=== PATIENT | female | born 1960 | race Caucasian/White ===

== ENCOUNTER → 2019-03-04 00:43 | Emergency (ER) | payer BC ==
[~2019-03-04 00:43] MED LIST: Meclizine TAB* 12.5 MG ONE
[2019-03-04 04:21] LABS: ABS Basophils 0.1 10^3/ul (0-0.2); ABS Eosinophils 0.1 10^3/ul (0-0.6); ABS Monocytes 0.7 10^3/ul (0-0.8); ABS Neutrophils 5.5 10^3/ul (1.5-7.7); Eosinophil % 0.9 %; Hematocrit 44 % (35-47); Hemoglobin 14.8 g/dL (12.0-16.0); Lymphocyte % 23.8 %; Mean Corpuscular HGB Conc 34 g/dL (31-36); Mean Corpuscular Hemoglobin 30 pg (27-31); Mean Corpuscular Volume 90 fL (80-97); Mean Platelet Volume 8.3 fL (7.4-10.4); Platelet Count 299 10^3/uL (150-450); Red Blood Count 4.91 10^6 /uL (3.70-4.87); Red Cell Distribution Width 14 % (10-15); White Blood Count 8.3 10^3/uL (3.5-10.8)
[2019-03-04 04:22] LABS: Albumin 4.1 g/dL (3.2-5.2); Albumin/Globulin Ratio 1.3 (1-3); Calcium 9.5 mg/dL (8.6-10.3); EGFR African American 78.6 (>60); EGFR Non-African American 64.9 (>60); Globulin 3.1 g/dL (2-4); Total Bilirubin 0.2 mg/dL (0.2-1.0); Total Protein 7.2 g/dL (6.4-8.9)
--- NOTE | 2019-03-04 05:35 | ED ---
Dizziness - HPI Summary HPI Summary: 58 year old F presents to [facility] accompanied by female friend with a chief complaint of dizziness upon waking up at 1130 this morning, 03/03/19. Patient reports she went to bed ok but woke up with her balance being off and is currently feeling pressure in her head, dizzy, and anxious. Patient reports an episode of dizziness 5 days ago that was lower in intensity than today which continued onto the next day. Patient reports that the rest of the week up until today she felt fine. Patient denies vomiting, nausea, or blurred vision, per triage. Per triage, patient also reports pulsating in her left ear once a year which she goes to therapy for. Symptoms aggravated by nothing. Symptoms alleviated by nothing. - History Of Current Complaint Chief Complaint: EDDizziness Stated Complaint: DIZZY PER PT Time Seen by Provider: 03/04/19 04:40 Hx Obtained From: Patient Onset/Duration: Still Present Character: Dizzy Aggravating Factor(s): Nothing Alleviating Factor(s): Nothing Associated Signs And Symptoms: Positive: Other: - (-): blurred vision. Negative : Nausea, Vomiting - Allergies/Home Medications Allergies/Adverse Reactions: Allergies Allergy/AdvReac Type Severity Reaction Status Date / Time No Known Allergies Allergy Verified 03/04/19 00:52 PMH/Surg Hx/FS Hx/Imm Hx Sensory History: Denies: Hx Legally Blind Opthamlomology History: Denies: Hx Legally Blind EENT History: Denies: Hx Deafness Infectious Disease History: No Infectious Disease History: Denies: Traveled Outside the [place] in Last 30 Days - Family History Known Family History: Negative: Blood Disorder - Social History Alcohol Use: None Substance Use Type: Reports: None Review of Systems Negative: Blurred Vision Negative: Vomiting, Nausea Neurological: Other - dizziness, feeling pressure in head Positive: Anxious All Other Systems Reviewed And Are Negative: Yes Physical Exam - Summary Physical Exam Summary: VITAL SIGNS: Reviewed. GENERAL: Patient is a well-developed and nourished FEMALE who is lying comfortable in the stretcher. Patient is not in any acute respiratory distress. HEAD AND FACE: No signs of trauma. No ecchymosis, hematomas or skull depressions. No sinus tenderness. EYES: PERRLA, EOMI x 2, No injected conjunctiva, no nystagmus. EARS: Hearing grossly intact. Ear canals and tympanic membranes are within normal limits. MOUTH: Oropharynx within normal limits. NECK: Supple, trachea is midline, no adenopathy, no JVD, no carotid bruit, no c- spine tenderness, neck with full ROM CHEST: Symmetric, no tenderness at palpation LUNGS: Clear to auscultation bilaterally. No wheezing or crackles. CVS: Regular rate and rhythm, S1 and S2 present, no murmurs or gallops appreciated. ABDOMEN: Soft, non-tender. No signs of distention. No rebound no guarding, and no masses palpated. Bowel sounds are normal. EXTREMITIES: FROM in all major joints, no edema, no cyanosis or clubbing. NEURO: Alert and oriented x 3. No acute neurological deficits. Speech is normal and follows commands. SKIN: Dry and warm Triage Information Reviewed: Yes Vital Signs On Initial Exam: Initial Vitals Temp Pulse Resp BP Pulse Ox 98.1 F 102 18 138/101 99 03/04/19 00:47 03/04/19 00:47 03/04/19 00:47 03/04/19 00:47 03/04/19 00:47 Vital Signs Reviewed: Yes Diagnostics - Vital Signs Vital Signs Temp Pulse Resp BP Pulse Ox 03/04/19 05:19 98.9 F 63 16 119/71 99 03/04/19 00:47 98.1 F 102 18 138/101 99 - Laboratory Lab Results: Lab Results 03/04/19 03/04/19 Range/Units 03:03 03:03 WBC 8.3 (3.5-10.8) 10^3/uL RBC 4.91 H (3.70-4.87) 10^6 /uL Hgb 14.8 (12.0-16.0) g/dL Hct 44 (35-47) % MCV 90 (80-97) fL MCH 30 (27-31) pg MCHC 34 (31-36) g/dL RDW 14 (10-15) % Plt Count 299 (150-450) 10^3/uL MPV 8.3 (7.4-10.4) fL Neut % (Auto) 65.8 % Lymph % (Auto) 23.8 % Stewart % (Auto) 8.9 % Eos % (Auto) 0.9 % Baso % (Auto) 0.6 % Absolute Neuts (auto) 5.5 (1.5-7.7) 10^3/ul Absolute Lymphs (auto) 2.0 (1.0-4.8) 10^3/ul Absolute Monos (auto) 0.7 (0-0.8) 10^3/ul Absolute Eos (auto) 0.1 (0-0.6) 10^3/ul Absolute Basos (auto) 0.1 (0-0.2) 10^3/ul Absolute Nucleated RBC 0.0 10^3/ul Nucleated RBC % 0.0 Sodium 140 (135-145) mmol/L Potassium 4.0 (3.5-5.0) mmol/L Chloride 107 (101-111) mmol/L Carbon Dioxide 26 (22-32) mmol/L Anion Gap 7 (2-11) mmol/L BUN 16 (6-24) mg/dL Creatinine 0.89 (0.51-0.95) mg/dL Est GFR ( Amer) 78.6 (>60) Est GFR (Non-Af Amer) 64.9 (>60) BUN/Creatinine Ratio 18.0 (8-20) Glucose 107 H (70-100) mg/dL Calcium 9.5 (8.6-10.3) mg/dL Total Bilirubin 0.20 (0.2-1.0) mg/dL AST 17 (13-39) U/L ALT 13 (7-52) U/L Alkaline Phosphatase 96 (34-104) U/L Total Protein 7.2 (6.4-8.9) g/dL Albumin 4.1 (3.2-5.2) g/dL Globulin 3.1 (2-4) g/dL Albumin/Globulin Ratio 1.3 (1-3) Result Diagrams: 03/04/19 03:03 03/04/19 03:03 Lab Statement: Any lab studies that have been ordered have been reviewed, and results considered in the medical decision making process. - CT Brain CT CT Interpretation Completed By: Radiologist Summary of CT Findings: Per radiologist,. No acute intracranial findings. ED physician has reviewed this image report. Dizzy Course/Dx - Course Course Of Treatment: 58 year old F presenting to [facility] accompanied by female friend with a chief complaint of dizziness upon waking up at 1130 this morning, 03/03/19. Patient reports she went to bed ok but woke up with her balance being off and is currently feeling pressure in her head, dizzy, and anxious. Patient reports an episode of dizziness 5 days ago that was lower in intensity than today which continued onto the next day. Patient denies vomiting, nausea, or blurred vision, per triage. Physical exam shows no abnormalities. Blood work shows no abnormalities except for RBC 4.91 H and Glucose 107 H. See downtime sheets for medications. Brain CT reveals No acute intracranial findings. Physician discussed discharge with patient who agrees with plan. Patient will be discharged. Patient intends to follow up with primary care provider within 3 days. - Diagnoses Provider Diagnoses: Vertigo Discharge - Sign-Out/Discharge Documenting (check all that apply): Patient Departure - discharge Patient Received Moderate/Deep Sedation with Procedure: No - Discharge Plan Condition: Stable Disposition: HOME Prescriptions: Meclizine TAB* [Antivert 12.5 TAB*] 25 mg PO TID PRN #20 tab PRN Reason: Vertigo Patient Education Materials: Vertigo (ED) Referrals: Huyen Waggoner DC [Primary Care Provider] - 3 Days Additional Instructions: PLEASE RETURN TO ED FOR ANY NEW OR WORSENING SYMPTOMS. FOLLOW UP WITH YOUR PRIMARY CARE PHYSICIAN WITHIN THREE DAYS. - Attestation Statements Document Initiated by Scribe: Yes Documenting Scribe: Kinsey Brown Provider For Whom Master is Documenting (Include Credential): Edwige Maradiaga MD Scribe Attestation: Yony Giang Alison Kim, scribed for Edwige Maradiaga MD on 03/04/19 at 0545. Status of Scribe Document: Ready
== END | disposition home or self-care (01) ==
LOC: ED 00:43
DX: R42 Dizziness and giddiness (principal)
CPT/HCPCS: 36415; 70450; 80053; 85025; 99282; A9270-GY

== ENCOUNTER 2019-04-05 11:45 | Emergency (ER) | payer BC ==
--- OUTSIDE RECORDS SUMMARY | 2019-04-05 11:50 | XMS REPORT | Continuity of Care Document ---
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 [address] [place] [address] Problems Active Problems Provider Date Esophageal dysphagia Marcus Howe MD Onset: 10/25/2011 Gastroesophageal reflux disease Marcus Howe MD Onset: 10/25/2011 Impacted cerumen Marcus Howe MD Onset: 06/29/2015 Tinnitus of left ear Marcus Howe MD Onset: 05/18/2018 Family History Date Family Member(s) Observation Comments General Cancer General Diabetes General Thyroid Disease Onset: (age 62 Years) Mother Cancer melanoma Onset: (age 42 Years) First Sister Thyroid Disease Social History Type Date Description Comments Sex Unknown Occupation [employer] Tobacco Use Start: Unknown Never Smoked Cigarettes Tobacco Use Start: Unknown Never Smoked Cigars Tobacco Use Start: Unknown Never Smoked A Pipe Smokeless Tobacco Never Used Smokeless Tobacco ETOH Use Does not drink alcohol Allergies, Adverse Reactions, Alerts Description No Known Drug Allergies Medications Active Medications SIG Qnty Indications Ordering Provider Date Turmeric Curcumin as directed Florencia Garcia M.D. 5-1000mg Capsules Biotin Florencia Garcia M.D. 1mg Capsules History Medications No Active Medications Marcus Howe MD 06/29/2015 - 05/18/2018 Pepcid 40 mg p.o. 90tabs 787.24 Marcus Howe MD 10/25/2011 - 40mg Tablets q.h.s. 06/28/2015 Omeprazole one po one 90caps 787.24 Marcus Howe MD 10/25/2011 - 40mg per day 06/28/2015 Capsules Vitamin B 12 Unknown - 06/28/2015 Cool Supplement Unknown - 06/28/2015 Immunizations CPT Code Status Date Vaccine Lot # [id number] Refused 06/29/2015 Prevnar 13 For Intramuscular Use 42355 Refused 06/29/2015 Influenza Virus Vaccine, 3 Years Of Age And Above, Intramuscular Vital Signs Date Vital Result Comment 03/18/2019 8:45am Weight 193.00 lb Weight 87.545 kg Height 65 inches 5'5" Height in cm's 165.1 cm BMI (Body Mass Index) 32.1 kg/m2 05/18/2018 10:32am Weight 193.00 lb Weight 87.545 kg Height 65 inches 5'5" Height in cm's 165.1 cm BMI (Body Mass Index) 32.1 kg/m2 06/29/2015 2:14pm BP Systolic 110 mmHg BP Diastolic 80 mmHg Heart Rate 70 /min Respiratory Rate 17 /min Weight 172.00 lb Weight 78.019 kg Height 66 inches 5'6" Height in cm's 167.6 cm BMI (Body Mass Index) 27.8 kg/m2 10/25/2011 9:51am BP Systolic 133 mmHg BP Diastolic 93 mmHg Heart Rate 98 /min Respiratory Rate 16 /min Weight 203.00 lb Weight 92.081 kg Height 65 inches 5'5" Height in cm's 165.1 cm BMI (Body Mass Index) 33.8 kg/m2 Procedures Date Code Description Status 06/29/2015 20975 Removal Wax Impaction Completed 10/25/2011 65384 Fiberoptic Laryngoscopy Completed Encounters Type Date Location Provider Dx Diagnosis Office Visit 03/18/2019 [place],Marcus Lucas H93.12 Tinnitus, left ear 8:30a 08/18/07 Office Visit 05/18/2018 [facility],Marcus Lucas H93.12 Tinnitus, left ear 10:45a 08/18/07 Office Visit 10/25/2011 [place],Marcus Lucas 787.24 Dysphagia, 9:30a 08/18/07 Pharyngoesophageal Phase 530.81 Reflux, Gastroesophageal Plan of Treatment Future Appointment(s):04/01/2019 3:15 pm - Marcus Howe MD at [place],After - Marcus Howe MDH93.12 Tinnitus, left earComments:Patient with a history of pulsatile tinnitus, symptoms seem to be more concerning to the patient andat this point she is anxious enough because of her symptoms of feeling off balance to have further investigations. I suggested MRI MRA rule out a vascular lesion temporal bone region
[2019-04-05 13:10] VITALS: BP 142/91
--- NOTE | 2019-04-05 14:10 | UC ---
Skin Complaint HPI - HPI Summary HPI Summary: 58-year-old female presents for rash to her right lower leg. Patient states that one week ago she was mowing lawn when she was struck in the right lower leg with some debris that was thrown from the mower. States she had a small, painful "divit" where she was struck. States 3 days ago it started itching and became red. States the redness has increased since that time. Denies any fever , chills, or drainage. - History of Current Complaint Chief Complaint: UCRash Time Seen by Provider: 04/05/19 13:51 Stated Complaint: RASH Hx Obtained From: Patient Pain Intensity: 5 - Allergy/Home Medications Allergies/Adverse Reactions: Allergies Allergy/AdvReac Type Severity Reaction Status Date / Time No Known Allergies Allergy Verified 03/24/19 13:31 PMH/Surg Hx/FS Hx/Imm Hx Previously Healthy: Yes - Denies significant PMH - Surgical History Surgical History: None Surgery Procedure, Year, and Place: DENIES - Family History Known Family History: Positive: Non-Contributory - Social History Occupation: Employed Full-time Lives: Alone Alcohol Use: None Substance Use Type: None Smoking Status (MU): Never Smoked Tobacco Review of Systems All Other Systems Reviewed And Are Negative: Yes Constitutional: Negative: Fever, Chills Skin: Positive: Other - See HPI Respiratory: Positive: Negative Cardiovascular: Positive: Negative Gastrointestinal: Positive: Negative Genitourinary: Positive: Negative Musculoskeletal: Positive: Negative Neurological: Positive: Negative Is Patient Immunocompromised?: No Physical Exam - Summary Physical Exam Summary: GENERAL APPEARANCE: Well developed, well nourished, alert and cooperative, and appears to be in no acute distress. CARDIAC: Normal S1 and S2. No S3, S4 or murmurs. Rhythm is regular. There is no peripheral edema, cyanosis or pallor. Extremities are warm and well perfused. Capillary refill is less than 2 seconds. Peripheral pulses intact. LUNGS: Clear to auscultation without rales, rhonchi, wheezing or diminished breath sounds. ABDOMEN: Positive bowel sounds. Soft, nondistended, nontender. No guarding or rebound. No masses or hepatosplenomegally. MUSKULOSKELETAL: ROM intact to all extremities. No joint erythema or tenderness. Normal muscular development. Normal gait. SKIN: 6 cm circular area of erythema without induration or fluctuance to the lateral aspect of the distal right lower led with mild increased warmth. Triage Information Reviewed: Yes Vital Signs: Initial Vital Signs Temp 99.1 F 04/05/19 13:07 Pulse 98 04/05/19 13:07 Resp 18 04/05/19 13:07 BP 142/91 04/05/19 13:07 Pulse Ox 100 04/05/19 13:07 Vital Signs Reviewed: Yes Course/Dx - Course Course Of Treatment: 58-year-old female presents for rash to her right lower leg. Patient states that one week ago she was mowing lawn when she was struck in the right lower leg with some debris that was thrown from the mower. States she had a small, painful "divit" where she was struck. States 3 days ago it started itching and became red. States the redness has increased since that time. Denies any fever , chills, or drainage. Afebrile. Hypertensive otherwise vital signs stable. Patient had 6 cm circular area of erythema without induration or fluctuance to the lateral aspect of the distal right lower led with mild increased warmth and otherwise unremarkable exam. Will treat for a cellulitis of the right lower leg. She is to start cephalexin 500 mg one capsule 3 times a day 7 days. Follow-up with her primary care provider in 3 days especially if symptoms are not improving. Anticipatory guidance and warning signs reviewed with the patient. Verbalizes understanding and agrees with plan of care. - Differential Diagnoses - Skin Complaint Differential Diagnoses: Cellulitis, Contact Dermatitis, Local Allergic Reaction , MRSA, Tick Born Illness - Diagnoses Provider Diagnosis: Cellulitis of right lower leg Discharge - Sign-Out/Discharge Documenting (check all that apply): Patient Departure All imaging exams completed and their final reports reviewed: No Studies - Discharge Plan Condition: Stable Disposition: HOME Prescriptions: cephALEXin [Keflex] 500 mg PO TID #21 capsule Patient Education Materials: Cellulitis (ED) Referrals: Huyen Waggoner DC [Primary Care Provider] - 3 Days Additional Instructions: You appear to have an infection of the skin called cellulitis. Will start to on an antibiotic to treat for the infection. Take cephalexin 500 mg 1 capsule 3 times a day for 7 days. Take acetaminophen (Tylenol) or ibuprofen (Advil, Motrin) according to directions as needed for any pain. Follow-up with your primary care provider in 3 days especially ifimprovement in your symptoms. Seek immediate medical attention in the emergency room if you develop a fever greater than 100.5 F, the redness continues to spread, if increased pain that is not managed with [id number] pain medication, swelling of the leg, or any worsening of symptoms. - Billing Disposition and Condition Condition: STABLE Disposition: Home
== END 2019-04-05 14:24 | disposition home or self-care (01) ==
LOC: UCEAST 11:45
DX: L03.115 Cellulitis of right lower limb (principal)
CPT/HCPCS: 99212; G0463